=== PATIENT | female | born 1965 | race Caucasian/White ===

== ENCOUNTER 2018-11-19 06:25 | Inpatient (IN) | payer BC ==
[2018-11-19] MEDS ORDERED: CLINDAMYCIN 900 MG/50 ML D5W IVPB IVPB (07:00)
[2018-11-19] MEDS: BUPIVACAINE 0.5%/EPI (SDV) 30 ML INJ (07:49)
[2018-11-19] MEDS: THROMBIN 5000 UNIT VIAL (07:49)
[2018-11-19] MEDS: POLYMYXIN/BACITRACIN 1L IRRIG (07:49)
[2018-11-19] MEDS: GELATIN SIZE 100 SPONGE (07:49)
[2018-11-19] MEDS: LACTATED RINGER'S 1,000 ML IV (07:55)
[2018-11-19] MEDS ORDERED: CEFAZOLIN 1 GM INJ (07:57)
[2018-11-19] MEDS ORDERED: DEXAMETHASONE 4 MG/ML 5 ML INJ (07:57)
[2018-11-19] MEDS ORDERED: NEOSTIGMINE 3 MG/3 ML SYRINGE (07:57)
[2018-11-19] MEDS ORDERED: MIDAZOLAM 1 MG/ML 2 ML INJ (07:57)
[2018-11-19] MEDS ORDERED: PROPOFOL 20 ML (07:57)
[2018-11-19] MEDS ORDERED: ONDANSETRON 4 MG INJ (07:57)
[2018-11-19] MEDS ORDERED: GLYCOPYRROLATE 0.4 MG INJ (07:57)
[2018-11-19] MEDS ORDERED: FENTAnyl 50 MCG/ML VIAL (07:57)
[2018-11-19] MEDS ORDERED: ROCURONIUM 50 MG INJ (07:57)
[2018-11-19] MEDS ORDERED: THROMBIN 5000 UNIT VIAL (11:53)
[2018-11-19] MEDS ORDERED: SUGAMMADEX SODIUM 200 MG/2 ML VIAL IV (12:12)
[2018-11-19] MEDS ORDERED: HYDROCODONE/APAP (5/325) TAB PO ×2 (12:30)
[2018-11-19] MEDS ORDERED: DEXTROSE 5%-0.45% NACL 1,000 ML IV (12:30)
[2018-11-19] MEDS ORDERED: NACL 0.9% 3 ML SYG IV (12:30)
[2018-11-19] MEDS ORDERED: NALOXONE (0.4 MG/ML) INJ IV (12:30)
[2018-11-19] MEDS ORDERED: AL HYDROX/MG HYDROX/SIMETH 30 ML CUP PO (12:30)
[2018-11-19] MEDS: HYDROmorphONE 0.2 MG/ML PCA IV (13:22)
[2018-11-19] MEDS: ONDANSETRON 4 MG INJ IV (13:24)
[2018-11-19] MEDS: ACETAMINOPHEN 1000MG/100ML IV 100 ML IVPB ×2 (13:52→21:34)
[2018-11-19] MEDS: LIDOCAINE 5% PATCH TD (13:53)
[2018-11-19] MEDS: DEXTROSE 5%-0.45% NACL 1,000 ML IV (16:10)
[2018-11-19] MEDS: ESTRADIOL 0.1 MG/24 HR PATCH TRANSDERM (18:23)
[2018-11-19] MEDS: PROCHLORPERAZINE 10 MG TAB PO (18:26)
[2018-11-19] MEDS: VANCOMYCIN 1 GM (PMX) 250 ML IVPB (20:11)
[2018-11-19] MEDS: CEFAZOLIN 2 GM/50 ML (PMX) 50 ML IVPB (20:16)
[2018-11-19] MEDS: PROGESTERONE 100 MG CAP PO (21:34)
[2018-11-20] MEDS: DEXTROSE 5%-0.45% NACL 1,000 ML IV ×2 (00:26→08:08)
[2018-11-20] MEDS: NITROGLYCERIN (SL) 0.4 MG TAB SL ×2 (03:19→03:48)
[2018-11-20 04:10] LABS: ANION GAP 5 (5-13); BLOOD UREA NITROGEN 9 mg/dl (7-20); CALCIUM 8.9 mg/dl (8.4-10.2); CARBON DIOXIDE 25 mmol/L (21-31); CHLORIDE 108 mmol/L (97-110); CREATININE 0.55 mg/dl (0.44-1.00); Estimated GFR > 60 mL/min (>60); GLUCOSE 138 mg/dl (70-220); HEMATOCRIT 35.7 % (37.0-47.0); HEMOGLOBIN 11.7 g/dl (12.0-16.0); SODIUM 138 mmol/L (135-144)
[2018-11-20 04:22] LABS: TROPONIN-I < 0.012 ng/ml (0.000-0.120)
[2018-11-20] MEDS: LEVOTHYROXINE 88 MCG TAB PO (06:16)
[2018-11-20] MEDS ORDERED: DOCUSATE SODIUM 100 MG CAP PO (07:59)
[2018-11-20] MEDS: VANCOMYCIN 1 GM (PMX) 250 ML IVPB (08:07)
[2018-11-20] MEDS: DOCUSATE SODIUM 100 MG CAP PO ×2 (08:08→20:33)
[2018-11-20] MEDS: ONDANSETRON 4 MG INJ IV ×2 (08:08→20:33)
[2018-11-20] MEDS: ACETAMINOPHEN 325 MG TAB PO (08:08)
[2018-11-20] MEDS: LIDOCAINE 5% PATCH TD (08:20)
[2018-11-20] MEDS ORDERED: RANOLAZINE (SR) 500 MG TAB PO ×2 (09:00)
[2018-11-20] MEDS ORDERED: DEXAMETHASONE 4 MG TAB PO (10:00)
[2018-11-20 11:29] LABS: TROPONIN-I < 0.012 ng/ml (0.000-0.120)
[2018-11-20] MEDS: DEXAMETHASONE 10 MG/ML 1 ML INJ IV (12:05)
[2018-11-20 19:34] LABS: ADD UMIC NO; UR ASCORBIC ACID NEGATIVE (NEGATIVE); UR BILIRUBIN (Dip) NEGATIVE (NEGATIVE); UR BLOOD (Dip) NEGATIVE (NEGATIVE); UR CLARITY CLEAR (CLEAR); UR COLOR STRAW (YELLOW); UR GLUCOSE (Dip) NEGATIVE (NEGATIVE); UR KETONES (Dip) NEGATIVE (NEGATIVE); UR LEUKOCYTE ESTERASE (Dip) NEGATIVE Leu/ul (NEGATIVE); UR NITRITE (Dip) NEGATIVE (NEGATIVE); UR SPECIFIC GRAVITY (Dip) 1.005 (1.003-1.030); UR TOTAL PROTEIN (Dip) NEGATIVE (NEGATIVE); UR UROBILINOGEN (Dip) NEGATIVE (NEGATIVE)
[2018-11-20] MEDS: HYDROCODONE/APAP (5/325) TAB PO (20:34)
[2018-11-20] MEDS: PROGESTERONE 100 MG CAP PO (22:15)
[2018-11-21 06:07] LABS: ADD MAN DIFF? NO
[2018-11-21 06:21] LABS: WHITE BLOOD COUNT 11.8 10^3/ul (4.8-10.8)
[2018-11-21 06:21] LABS: BASOPHILS % 0.2 % (0.0-2.0); HEMATOCRIT 36.9 % (37.0-47.0); HEMOGLOBIN 11.8 g/dl (12.0-16.0); LYMPHOCYTES # 1.1 10^3/ul (0.8-2.9); LYMPHOCYTES % 8.9 % (15.0-51.0); MEAN CORPUSCULAR HEMOGLOBIN 30.3 pg (29.0-33.0); MEAN CORPUSCULAR VOLUME 94.9 fl (82.0-101.0); MEAN PLATELET VOLUME 11.3 fl (7.4-10.4); MONOCYTES % 8.7 % (0.0-11.0); NEUTROPHIL # 9.6 10^3/ul (1.6-7.5); NEUTROPHILS % 81.8 % (39.0-77.0); PLATELET COUNT 302 10^3/UL (140-415); RED BLOOD COUNT 3.89 10^6/ul (4.20-5.40); RED CELL DISTRIBUTION WIDTH 14.2 % (11.5-14.5)
[2018-11-21] MEDS: LEVOTHYROXINE 88 MCG TAB PO (06:52)
[2018-11-21] MEDS: ONDANSETRON 4 MG INJ IV (07:03)
[2018-11-21] MEDS: HYDROCODONE/APAP (5/325) TAB PO (07:04)
[2018-11-21] MEDS: DOCUSATE SODIUM 100 MG CAP PO ×2 (07:55→08:59)
[2018-11-21] MEDS: LIDOCAINE 5% PATCH TD (08:59)
[2018-11-21] MEDS: DEXAMETHASONE 10 MG/ML 1 ML INJ IV (12:20)
== END 2018-11-21 11:50 | disposition home or self-care (01) | DRG 518 ==
LOC: REC 06:25 → 6WM 11-20 04:42 → MS1 14:54
PROC: 0RR30JZ Replacement of Cervical Vertebral Disc with Synthetic Substitute, Open Approach (ICD-10-PCS; principal; 2018-11-19 08:00)
PROC: 0RR30JZ Replacement of Cervical Vertebral Disc with Synthetic Substitute, Open Approach (ICD-10-PCS; 2018-11-19 08:00)
DX: M50.122 Cervical disc disorder at C5-C6 level with radiculopathy (principal); E03.9 Hypothyroidism, unspecified; K59.00 Constipation, unspecified
CPT/HCPCS: 72050; 80048; 81003; 84484; 85014; 85018; 85025; 86850; 86900; 86901; 87086; 93005; 97116; 97161; 97530